=== PATIENT | female | born 1965 | race Caucasian/White ===

== ENCOUNTER → 2021-12-10 | Outpatient (CLI) | payer OTHER | LOC: RAD 10:45 | PROVIDERS: ATTEND Physician Assistant | DX: Z12.31 Encounter for screening mammogram for malignant neoplasm of breast (principal) | CPT/HCPCS: 77063; 77067 ==

== ENCOUNTER 2022-02-24 06:30 | Outpatient (CLI) | payer OTHER ==
[~2022-02-24] VITALS: Ht 165.1 cm; Wt 113.0 kg
[2022-02-24] MEDS ORDERED: VENL75CA93 PO (09:36)
[2022-02-24] MEDS ORDERED: NEBI5TAB11 PO (09:36)
[2022-02-24] MEDS ORDERED: HYDR25TA4 PO (09:36)
[2022-02-24] MEDS ORDERED: ALLO300T2 PO (09:36)
[2022-02-24] MEDS ORDERED: THYR30TA21 PO (09:36)
== END 2022-02-24 09:39 | disposition home or self-care (01) ==
LOC: PREOP 06:30
PROVIDERS: ATTEND Surgery
DX: Z01.818 Encounter for other preprocedural examination (principal)

== ENCOUNTER 2022-03-08 06:51 | Day surgery (SDC) | payer OTHER ==
[~2022-03-08] VITALS: Ht 165.1 cm; Wt 113.0 kg
[~2022-03-08 06:51] MED LIST: ALLO300T2 PO; HYDR25TA4 PO; NEBI5TAB11 PO; THYR30TA21 PO; VENL75CA93 PO
[2022-03-08] MEDS ORDERED: LACTATED RINGERS 1,000 ML IV STA (07:05)
[2022-03-08] MEDS ORDERED: ONDANSETRON 4 MG/2 ML (SDV) Z0FRAN IV ONE (07:15)
[2022-03-08 07:24] VITALS: BP 140/86
[2022-03-08] MEDS ORDERED: PROPOFOL INJECTION 50 ML IV ONE (08:26)
--- NOTE | 2022-03-08 08:27 | Progress Note-Pre Operative ---
Pre-Operative Progress Note Date of Available H&P: Feb 16, 2022 Date H&P Reviewed: Mar 08, 2022 Time H&P Reviewed: 08:21 History & Physical: H&P Reviewed, Patient Examed, No changes noted Pre-Operative Diagnosis: Screening Colonoscopy MILES MERRITT DO Mar 08, 2022 08:27
[2022-03-08] MEDS ORDERED: MIDAZOLAM 2 MG/2 ML (VERSED) VIAL ONE (08:31)
[2022-03-08] MEDS ORDERED: proPOfol 200 MG/20 ML (DIPRIVAN) VIAL IV ONE ×2 (08:45→09:02)
[2022-03-08 09:15] VITALS: BP 112/64
--- NOTE | 2022-03-08 09:15 | Endoscopy Discharge Instruct ---
Endo Procedure/Findings Findings 1.: Polyp 2.: Diverticulosis 3.: Internal Hemorrhoids Discharge Instructions - Activity: You might feel a little sleepy until tomorrow. This is due to the medicine you received to relax you. Until tomorrow, you should: NOT drive a car, operate machinery or power tools. NOT drink any alcoholic beverages. NOT make any important decisions or sign importortant papers. Do not return to work until tomorrow, unless otherwise instructed. Resume previous activities tomorrow. Diet: Start by taking liquids. If you tolerate liquids, advance to solid food. 1.: Colonscopy in 5 years Notify Physician - If you experience excessive bleeding, unusual abdominal pain, fever, or chest pain, contact your doctor immediately. MILES MERRITT DO Mar 08, 2022 09:15
--- NOTE | 2022-03-08 09:15 | Progress Note-Post Operative ---
Post-Operative Progess Note Surgeon (s)/Needle Control Cheniller (s) Surgeon MILES MERRITT DO Needle Control Cheniller: HOMER Bonilla Pre-Operative Diagnosis Screening Colonoscopy Post-Operative Diagnosis Polyps Diverticula Int hemorrhoids Procedure & Operative Findings Date of Procedure 03/08/22 Procedure Performed/Findings Colonoscopy with snare polypectomy PROCEDURE NOTE: After informed consent was obtained, the patient was brought to the endoscopy suite, placed in bed in left lateral decubitus position. She was administered IV sedation by the PATIENT DAY COORDINATOR who then monitored her vitals the entire time, heart rate, blood pressure and pulse ox and the scope was inserted, pushed all the way to about 150 cm and pushed into the cecum. On the way in noted some very small diverticula. Just outside cecum in the Ascending colon found two polyps; one large and one small. I removed both with snare polypectomy, the larger one was taken in two pieces. Once in the cecum I took a picture of appendiceal orifice, noted the ileocecal valve and then slowly withdrew the scope insufflating to look circumferentially at the [place] starting in the cecum, up the ascending colon to the hepatic flexure, then down the transverse colon to the splenic flexure, into the descending colon, down into the sigmoid. Finally into the rectal vault and retroflexed the scope; took a picture of the internal hemorrhoids. The patient tolerated the procedure. She was recovered in endoscopy suite. Recommended for repeat colonoscopy in 5 years. Anesthesia Type IV sedation by PATIENT DAY COORDINATOR Estimated Blood Loss Estimated blood loss (mL): scant Specimens/Packing Specimens Removed Asc colon polyp x 2 MILES MERRITT DO Mar 08, 2022 09:14
[2022-03-08 09:20] VITALS: BP 112/64
[2022-03-08 09:40] VITALS: BP 107/70
--- NOTE | 2022-03-08 12:45 | Anesthesia-General Post-Op ---
MAC Patient Condition Mental Status/LOC: Same as Preop Cardiovascular: Satisfactory Nausea/Vomiting: Absent Respiratory: Satisfactory Pain: Controlled Complications: Absent Post Op Complications Complications None Follow Up Care/Instructions Patient Instructions None needed. Anesthesiology Discharge Order Discharge Order Patient is doing well, no complaints, stable vital signs, no apparent adverse anesthesia problems. No complications reported per nursing. CHRISTY REAL CRNA Mar 08, 2022 12:45
== END 2022-03-08 09:47 | disposition home or self-care (01) ==
LOC: ENDO 06:51
PROVIDERS: ATTEND Surgery
DX: Z12.11 Encounter for screening for malignant neoplasm of colon (principal); D12.2 Benign neoplasm of ascending colon; K57.30 Diverticulosis of large intestine without perforation or abscess without bleeding; K64.8 Other hemorrhoids; E66.01 Morbid (severe) obesity due to excess calories; Z68.41 Body mass index [BMI] 40.0-44.9, adult; Z28.310 Unvaccinated for COVID-19
CPT/HCPCS: 88305

== ENCOUNTER 2022-08-25 06:44 | Outpatient (CLI) | payer OTHER ==
[~2022-08-25] VITALS: Ht 165.1 cm; Wt 102.2 kg
[2022-08-25] MEDS ORDERED: THYR60TA27 PO (10:11)
[2022-08-25] MEDS ORDERED: HYDR100T41 PO (10:11)
[2022-08-25] MEDS ORDERED: ALLO100T PO (10:11)
== END 2022-08-25 10:35 | disposition home or self-care (01) ==
LOC: PREOP 06:44
PROVIDERS: ATTEND Surgery
DX: Z01.818 Encounter for other preprocedural examination (principal)

== ENCOUNTER 2022-09-06 08:13 | Day surgery (SDC) | payer OTHER ==
[~2022-09-06] VITALS: Ht 165.1 cm; Wt 102.2 kg
[~2022-09-06 08:13] MED LIST changes: +ALLO100T PO; +HYDR100T41 PO; +THYR60TA27 PO
[2022-09-06] MEDS ORDERED: LACTATED RINGERS 1,000 ML IV STA (08:30)
[2022-09-06] MEDS ORDERED: HURRICAINE EXT TUBE (BENZOCAINE) XX PRN (08:30)
--- NOTE | 2022-09-06 08:32 | Progress Note-Pre Operative ---
Pre-Operative Progress Note Date of Available H&P: Aug 19, 2022 Date H&P Reviewed: Sep 06, 2022 Time H&P Reviewed: 08:28 History & Physical: H&P Reviewed, Patient Examed, No changes noted Pre-Operative Diagnosis: Chronic Reflux MILES MERRITT DO Sep 06, 2022 08:31
[2022-09-06 08:58] VITALS: BP 142/83
[2022-09-06] MEDS ORDERED: PROPOFOL INJECTION 50 ML IV ONE (09:16)
[2022-09-06] MEDS ORDERED: MIDAZOLAM 2 MG/2 ML (VERSED) VIAL ONE (09:16)
[2022-09-06 09:30] VITALS: BP 114/88
[2022-09-06 09:35] VITALS: BP 114/88
--- NOTE | 2022-09-06 09:37 | Progress Note-Post Operative ---
Post-Operative Progess Note Surgeon (s)/Aviation Tactical Readiness Officer (s) Surgeon MILES MERRITT DO Aviation Tactical Readiness Officer: none Pre-Operative Diagnosis Chronic Reflux Post-Operative Diagnosis Gastritis Esophagitis Hiatal Hernia Procedure & Operative Findings Date of Procedure 09/06/22 Procedure Performed/Findings EGD with bx PROCEDURE NOTE: After informed consent was obtained, the patient was brought to the endoscopy suite, placed in bed in left lateral decubitus position. She was administered IV sedation by the WOOL SUPPLIER who then monitored vitals the entire time, heart rate, blood pressure and pulse ox and the scope was inserted down the mouth through the esophagus into the stomach. On the way down, noted some mild esophagitis, took a picture, pushed into the stomach, pushed past the antrum into the duodenum. Duodenum looked good. Pulled back and did a biopsy of antrum, then retroflexed the scope, saw small grade III AFS hiatal hernia, took a picture of this and then pulled the scope into the GE junction and then did a biopsy of the GE junction. Pushed the scope back into the stomach, suctioned all the air out of the stomach. At this point pulled the scope up the esophagus and out the mouth. The patient tolerated the procedure, and she recovered in endoscopy suite. Anesthesia Type IV sedation by WOOL SUPPLIER Estimated Blood Loss Estimated blood loss (mL): scant Specimens/Packing Specimens Removed antral bx GE jxn bx x 2 MILES MERRITT DO Sep 06, 2022 09:37
[2022-09-06] MEDS ORDERED: PANT40TA2 PO (09:38)
--- NOTE | 2022-09-06 09:39 | Endoscopy Discharge Instruct ---
Endo Procedure/Findings Findings 1.: Gastritis 2.: Hiatal Hernia 3.: Other Findings (Esophagitis) 4.: Other Findings (??Gastroparesis, had retained food) Discharge Instructions - Activity: You might feel a little sleepy until tomorrow. This is due to the medicine you received to relax you. Until tomorrow, you should: NOT drive a car, operate machinery or power tools. NOT drink any alcoholic beverages. NOT make any important decisions or sign importortant papers. Do not return to work until tomorrow, unless otherwise instructed. Resume previous activities tomorrow. Diet: Start by taking liquids. If you tolerate liquids, advance to solid food. 1.: EGD in 1 year Notify Physician - If you experience excessive bleeding, unusual abdominal pain, fever, or chest pain, contact your doctor immediately. Follow-Up: Other Follow up in my office in one week MILES MERRITT DO Sep 06, 2022 09:39
[2022-09-06 09:53] VITALS: BP 114/88
--- NOTE | 2022-09-06 11:38 | Anesthesia-General Post-Op ---
MAC Patient Condition Mental Status/LOC: Same as Preop Cardiovascular: Satisfactory Nausea/Vomiting: Absent Respiratory: Satisfactory Pain: Controlled Complications: Absent Post Op Complications Complications None Follow Up Care/Instructions Patient Instructions None needed. Anesthesiology Discharge Order Discharge Order Patient is doing well, no complaints, stable vital signs, no apparent adverse anesthesia problems. No complications reported per nursing. CHRISTY REAL CRNA Sep 06, 2022 11:38
== END 2022-09-06 10:05 | disposition home or self-care (01) ==
LOC: ENDO 08:13
PROVIDERS: ATTEND Surgery
DX: K29.50 Unspecified chronic gastritis without bleeding (principal); K21.00 Gastro-esophageal reflux disease with esophagitis, without bleeding; K44.9 Diaphragmatic hernia without obstruction or gangrene; E66.9 Obesity, unspecified; Z68.37 Body mass index [BMI] 37.0-37.9, adult